=== PATIENT | female | born 1950 ===

== ENCOUNTER 2021-02-17 07:27 | Day surgery (SDC) | payer OTHER | END 2021-02-17 13:00 | disposition home or self-care (01) | LOC: AMB-ENDOS 07:27 | PROVIDERS: ATTEND Colon & Rectal Surgery | DX: K57.32 Diverticulitis of large intestine without perforation or abscess without bleeding (principal); K64.1 Second degree hemorrhoids; Z20.822 Contact with and (suspected) exposure to COVID-19 ==